=== PATIENT | female | born 1995 ===

== ENCOUNTER 2020-07-29 11:57 | Outpatient (CLI) | payer MEDICAID ==
[2020-07-29 14:20] VITALS: BP 108/70
--- NOTE | 2020-07-29 18:13 | Ultrasound Report ---
ULTRASOUND OBSTETRIC LIMITED ULTRASOUND BIOPHYSICAL PROFILE INDICATION / CLINICAL INFORMATION: well being. Clinical Gestational Age (GA): 41.0 weeks.days COMPARISON: None available. FINDINGS: BREATHING MOVEMENT = 2 GROSS BODY MOVEMENT = 2 TONE = 2 QUALITATIVE AMNIOTIC FLUID VOLUME = 2 TOTAL BIOPHYSICAL SCORE = 8/8 HEART RATE (beats per minute): 165 AMNIOTIC FLUID INDEX (cm) = 10 (normal = 7-24 cm) PRESENTATION: Cephalic. ADDITIONAL FINDINGS: None. IMPRESSION: 1. Biophysical Score = 8/8 2. Heart rate at the upper limits of normal. Signer Name: Louie Britt MD Signed: 07/29/2020 6:08 PM Workstation Name: [id number]
--- NOTE | 2020-07-29 18:24 | Ultrasound Report ---
US OB limited INDICATION / CLINICAL INFORMATION: well being. COMPARISON: None available. FINDINGS: A single live fetus in cephalic presentation is present with heart rate 157. TRENT is 10. IMPRESSION: Single live fetus in cephalic presentation with heart rate of 157 and TRENT of 10 Signer Name: Pavel Sotelo MD FACR Signed: 07/29/2020 6:19 PM Workstation Name: [id number]
== END 2020-07-29 14:33 | disposition home or self-care (01) ==
LOC: TRG 11:57 → APU 11:59 → TRG 14:33
PROVIDERS: ATTEND Obstetrics & Gynecology
DX: O36.8130 Decreased fetal movements, third trimester, not applicable or unspecified (principal); Z3A.41 41 weeks gestation of pregnancy
CPT/HCPCS: 59025; 76815; 76819